=== PATIENT | male | born 1995 | race Caucasian/White ===

== ENCOUNTER 2021-08-20 21:41 | Emergency (ER) | payer OTHER ==
[~2021-08-20 21:41] MED LIST: LOVENOX SY40 MG/0.4 SQ; PERCOCET 7.5-31 EACH PO; SINGULAIR10 MG PO; ZYRTEC10 MG PO
[2021-08-20 22:26] LABS: HEMOGLOBIN 14.3 gm/dl (14.0-17.5); RED BLOOD COUNT 5.06 M/UL (4.20-5.50); WHITE BLOOD COUNT 16.5 K/UL (4.5-11.0)
[2021-08-20 23:29] LABS: BUN/CREATININE RATIO 16 (0-10)
[2021-08-21] MEDS ORDERED: IBUPROFEN600 MG PO (00:40)
[2021-08-21] MEDS ORDERED: KEFLEX CAP 250250 MG PO (00:40)
== END 2021-08-21 01:00 | disposition home or self-care (01) ==
LOC: ER1 21:41
PROVIDERS: Family Medicine
DX: S31.813A Puncture wound without foreign body of right buttock, initial encounter (principal); S81.832A Puncture wound without foreign body, left lower leg, initial encounter; S71.132A Puncture wound without foreign body, left thigh, initial encounter; W34.00XA Accidental discharge from unspecified firearms or gun, initial encounter; Y92.89 Other specified places as the place of occurrence of the external cause; Y99.0 Civilian activity done for income or pay
CPT/HCPCS: 75635; 80053; 85025; 90471; 90715; 96365; 96375; 99285; J0690; J1885; Q9967